=== PATIENT | female | born 1960 | race Caucasian/White ===

== ENCOUNTER 2017-11-23 07:32 | Outpatient (CLI) | payer OTHER ==
[~2017-11-23 07:32] MED LIST: CEFADROXIL500 MG PO; OXYC1TAB9 PO; SYNTHROID125 MCG PO; ULTRACET PO
== END 2017-11-23 07:39 | disposition home or self-care (01) ==
LOC: SONOGRAMA 07:32
DX: R59.9 Enlarged lymph nodes, unspecified (principal)